=== PATIENT | male | born 1980 | race Caucasian/White ===

== ENCOUNTER 2018-11-05 06:47 | Inpatient (IN) | payer OTHER ==
[~2018-11-05] VITALS: Ht 185.4 cm; Wt 106.6 kg
--- NOTE | 2018-11-05 07:51 | NUR ---
Pt.in the room,was seen by .
[2018-11-05] MEDS ORDERED: KETOROLAC TROMETHAMINE 15 MG INJ IV ONE (08:15)
[2018-11-05] MEDS ORDERED: ONDANSETRON IV *ER 4 MG/2 ML VIAL IV ONE (08:15)
[2018-11-05] MEDS ORDERED: IV NORMAL SALINE 1000 ML BAG IV ONE ×2 (08:15→15:04)
[2018-11-05 08:19] LABS: *BILIRUBIN,URIN NEGATIVE (NEGATIVE); *BLOOD, URINE Trace-intact (NEGATIVE); *CLARITY,URINE CLEAR (CLEAR); *COLOR,URINE YELLOW (YELLOW); *KETONES,URINE 2+ (NEGATIVE); *UROBILINOGEN,URINE 0.2 E.U./dl (NORMAL); LEUKOCYTE ESTERASE ,URINE NEGATIVE (NEGATIVE); NITRITE, URINE NEGATIVE (NEGATIVE); PH,URINE 6.5 (5.0-8.0); UGLUCOSE NEGATIVE (NEGATIVE)
[2018-11-05] MEDS ORDERED: IOHEXOL 300MG/ML 100 ML INFUS..BTL ONE (08:21)
[2018-11-05] MEDS ORDERED: SWABABLE VALVE TRANSFER SET EA MC ONE (08:21)
[2018-11-05] MEDS ORDERED: IV NORMAL SALINE 250 ML IV ONE (08:21)
[2018-11-05 08:28] LABS: BACTERIA,URINE NONE SEEN /HPF (NONE SEEN); RBC,URINE 0-3 /HPF (0-3); SQUAMOUS EPITHELIAL CELL,UR FEW /HPF (NONE SEEN); WBC,URINE 0-3 /HPF (0-3)
[2018-11-05] MEDS ORDERED: DIATR MEGLU/DIATRIZOATE SODIUM 30 ML SOLUTION PO ONE (08:30)
[2018-11-05] MEDS ORDERED: KETOROLAC TROMETHAMINE 15 MG INJ ONE (08:33)
[2018-11-05] MEDS ORDERED: ONDANSETRON 4 MG/2 ML VIAL ONE (08:33)
[2018-11-05 08:40] LABS: BASOPHILS % (AUTO) 0.6 % (0.0-2.0); EOSINOPHILS # (AUTO) 0.1 K/uL (0.0-0.7); EOSINOPHILS % (AUTO) 1.4 % (0.0-7.0); HEMATOCRIT 44.6 % (36.7-47.1); HEMOGLOBIN 15.8 g/dL (12.5-16.3); LYMPHOCYTES # (AUTO) 1.9 K/uL (20.0-40.0); MEAN CORPUSCULAR HEMOGLOBIN 29.8 uug (23.8-33.4); MEAN CORPUSCULAR HGB CONC 36 g/dL (32.5-36.3); MEAN CORPUSCULAR VOLUME 83.8 fL (73.0-96.2); MONOCYTES # (AUTO) 0.6 K/uL (2.0-10.0); MONOCYTES % (AUTO) 7.6 % (0.0-11.0); NEUTROPHILS # (AUTO) 4.8 K/uL (1.8-8.9); NEUTROPHILS % (AUTO) 64.4 % (38.5-71.5); PLATELET COUNT (AUTO) 275 K/uL (152-348); RED BLOOD CELL COUNT(AUTO) 5.32 MIL/uL (4.06-5.63); WHITE BLOOD COUNT (AUTO) 7.4 K/uL (3.6-10.2)
[2018-11-05] MEDS ORDERED: DIATR MEGLU/DIATRIZOATE SODIUM 30 ML SOLUTION ONE (08:42)
[2018-11-05 08:53] LABS: CREATININE 1.1 mg/dL (0.6-1.3); POTASSIUM 4.2 mmol/L (3.5-5.1)
[2018-11-05 08:59] LABS: BILIRUBIN,DIRECT 0.1 mg/dL (0.0-0.2); BILIRUBIN,TOTAL 0.6 mg/dL (0.2-1.0); TOTAL PROTEIN, SERUM 7.7 g/dL (6.4-8.2)
--- NOTE | 2018-11-05 10:39 | NUR ---
PT.IN ROOM , WALKS TO THE BATHROOM, STATED THAT PAIN SUBSIDE AFTER PAIN MEDICATION. NO S/S OF ACUTE DISTRESS.
--- NOTE | 2018-11-05 10:43 | NUR ---
Pt. was seen by updated with CT scan resolt.
[2018-11-05] MEDS ORDERED: PIPERACILLIN SODIUM/TAZOBACTAM 3.375 G in IV DEXTROSE 5% 50 ML IV ONE (10:45)
--- NOTE | 2018-11-05 10:45 | NUR ---
AT BEDSIDE,ASK IF NEED BC PRIOR ZOSYN TO BE GIVEN,PER DR IGNACIO NO NEED FOR BC,ZOSYN STARTED.
[2018-11-05] MEDS ORDERED: PIPERACILLIN/TAZOBACTAM/D5W 50 ML IV ONE (10:47)
--- NOTE | 2018-11-05 11:03 | NUR ---
spoke with by the phone.
--- NOTE | 2018-11-05 11:55 | NUR ---
PT.OK TO BE ADMITED.SBAR REPORT GIVEN TO BOONE/KATHARINA.PT.WILL BE ADMITED TO #[id number] M/S
--- NOTE | 2018-11-05 12:50 | NUR ---
PT BROUGHT TO FLOOR VIA GURNEY. PT IS CALM, COOPERATIVE, NO SIGNS OF RESPIRATORY DISTRESS, PT C/O 12/23 PAIN WAS GIVEN TORADOL IN ER. LAST BM WAS YESTERDAY, NPO ALL DAY, 911 TELECOMMUNICATOR SPOKE TO PATIENT. 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 PT IS AOX4, LIVES WITH , VERBALIZES THAT HE IS NERVOUS AND ANXIOUS ABOUT POSSIBLE SURGERY. CONTINUE TO MONITOR PT.
[2018-11-05] MEDS ORDERED: PIPERACILLIN/TAZOBACTAM/D5W 50 ML IV SCH (14:00)
[2018-11-05] MEDS ORDERED: ACETAMINOPHEN 650 MG SUPP.RECT RC PRN (14:00)
[2018-11-05] MEDS ORDERED: ONDANSETRON 4 MG/2 ML VIAL IV PRN (14:00)
[2018-11-05] MEDS: KETOROLAC TROMETHAMINE 15 MG INJ IVP PRN ×2 (14:33→20:51)
[2018-11-05] MEDS: IV D5 1/2 NS 1000 ML 1,000 ML IV PRN (14:46)
[2018-11-05] MEDS ORDERED: NEOSTIGMINE METHYLSULFATE 10 MG/10 ML VIAL IV ONE (15:04)
[2018-11-05] MEDS ORDERED: IV LACTATED RINGERS SOLUTION 1,000 ML BAG IV ONE (15:04)
[2018-11-05] MEDS ORDERED: SEVOFLURANE 250 ML BOTTLE IH ONE (15:04)
[2018-11-05] MEDS ORDERED: IRR NORMAL SALINE IRRIGATION 1,000 ML BOTTLE IR ONE (15:04)
[2018-11-05] MEDS ORDERED: METOCLOPRAMIDE HCL 10 MG/2 ML VIAL IV ONE (15:04)
[2018-11-05] MEDS ORDERED: PROPOFOL 200 MG/20 ML BOTTLE IV ONE (15:04)
[2018-11-05] MEDS ORDERED: GLYCOPYRROLATE 0.2 MG/ML VIAL MC ONE (15:04)
[2018-11-05] MEDS ORDERED: CEFAZOLIN 1 G VIAL MC ONE (15:04)
[2018-11-05] MEDS ORDERED: ONDANSETRON 4 MG/2 ML VIAL IV ONE (15:04)
[2018-11-05 15:50] VITALS: BP 121/73
[2018-11-05] MEDS ORDERED: LIDOCAINE 0.5% MPF 50 ML VIAL ONE (15:53)
[2018-11-05] MEDS ORDERED: BUPIVACAINE/EPI PF 0.25% 30 ML VIAL ONE (15:53)
--- NOTE | 2018-11-05 16:10 | NUR ---
CONSENT SIGNED BY PATIENT AND WAS BROUGHT DOWN TO OR. PT WEDDING RING AND GLASSES WERE GIVEN TO .
[2018-11-05] MEDS ORDERED: FENTANYL CITRATE 250 MCG/5 ML AMPUL ONE (16:28)
[2018-11-05] MEDS ORDERED: METOCLOPRAMIDE HCL 10 MG/2 ML VIAL ONE (16:28)
[2018-11-05] MEDS ORDERED: MIDAZOLAM HCL 2 MG/2 ML VIAL ONE (16:28)
[2018-11-05] MEDS ORDERED: ROCURONIUM BROMIDE 50 MG/5 ML VIAL ONE (16:29)
[2018-11-05] MEDS ORDERED: MEPERIDINE 50 MG/1 ML DISP.SYRIN ONE (18:07)
--- NOTE | 2018-11-05 19:30 | NUR ---
PATIENT BACK FROM LAPAROSCOPIC APPENDECTOMY IN FAIR CONDITION, WITH DERMA BAND ON CLOSE TO UMBILICUS, LEFT ABDOMEN, R MID LINE ABDOMEN, PROVIDED INCENTIVE SPIROMETER, AND TAUGHT PATIENT TO USE IT, NO COMPLAIN OF PAIN AT THIS TIME. PATIENT ALERT ORIENTED, CONT TO MONITOR. FAMILY AT BEDSIDE.
[2018-11-05 20:00] VITALS: BP 126/65
[2018-11-05] MEDS: PIPERACILLIN/TAZOBACTAM/D5W 3.375 G in PREMIXED 1 EACH IV SCH (20:23)
[2018-11-05 21:30] VITALS: BP 117/67
--- NOTE | 2018-11-05 23:53 | NUR ---
PATIENT STILL COMPLAIN OF ABDOMINAL PAIN AFTER TWO HOURS OF TORADOL 15MG IV, NOTIFY DR. HARP, WITH ORDER OF MORPHINE 2MG IV EVERY 3 HOURS NEEDED, AND ATIVAN 1MG IV ONE TIME ORDER.
[2018-11-06] MEDS ORDERED: MORPHINE SULFATE 2 MG/1 ML DISP.SYRIN IV PRN
[2018-11-06] MEDS ORDERED: LORAZEPAM 2 MG/1 ML VIAL IV ONE
[2018-11-06] MEDS ORDERED: MORPHINE SULFATE 4 MG/1 ML DISP.SYRIN ONE (00:16)
--- NOTE | 2018-11-06 01:23 | NUR ---
SUSAN DENNISON, WITNESS BY SUPERVISOR COMPONENT ASSEMBLER NURSE.
--- NOTE | 2018-11-06 01:23 | NUR ---
PATIENT PAIN MEDICATION MORPHINE WAS EFFECTIVE, AND PATIENT REFUSED ATIVAN 1MG IV FOR ANXIETY AND SLEEP, STATED" HE'S ASLEEP" DON'T WANT ATIVAN AT THIS TIME. MEDICATION WAISTED.
--- NOTE | 2018-11-06 01:49 | NUR ---
ZOSYNS AT 0200 NOT GIVEN AT THIS TIME, TOO CLOSE FROM PREVIOUS ADMINISTRATION, NEXT DOSE AT 0400.
[2018-11-06 04:23] VITALS: BP 115/67
[2018-11-06] MEDS: KETOROLAC TROMETHAMINE 15 MG INJ IVP PRN ×2 (04:44→15:10)
[2018-11-06] MEDS: PIPERACILLIN/TAZOBACTAM/D5W 3.375 G in PREMIXED 1 EACH IV SCH ×3 (04:46→20:07)
--- NOTE | 2018-11-06 04:47 | NUR ---
PATIENT COMPLAINING UNABLE TO URINATE ADEQUATELY, PATIENT ASSISTED TO TOILET BUT DRIBBLE ONLY, ASSISTED BACK TO BED, AND BLADDER SCAN DONE WITH 500CC URINE RETENTION, ESCOBAR ELECTRONIC IMAGING SYSTEM OPERATOR NOTIFIED WITH ORDER TO DO STRAIGHT CATH, AND CONT TO MONITOR.
[2018-11-06 06:48] LABS: MONOCYTES # (AUTO) 0.7 K/uL (2.0-10.0); NEUTROPHILS # (AUTO) 6.1 K/uL (1.8-8.9); WHITE BLOOD COUNT (AUTO) 7.8 K/uL (3.6-10.2)
[2018-11-06 06:52] LABS: BILIRUBIN,TOTAL 0.9 mg/dL (0.2-1.0); CREATININE 1.2 mg/dL (0.6-1.3); POTASSIUM 3.6 mmol/L (3.5-5.1); TOTAL PROTEIN, SERUM 7.1 g/dL (6.4-8.2)
[2018-11-06 06:59] LABS: BASOPHILS % (AUTO) 0.3 % (0.0-2.0); EOSINOPHILS % (AUTO) 0.2 % (0.0-7.0); LYMPHOCYTES % (AUTO) 12.4 % (20.5-51.5); MEAN CORPUSCULAR HEMOGLOBIN 30.2 uug (23.8-33.4); MEAN CORPUSCULAR HGB CONC 35 g/dL (32.5-36.3); MEAN CORPUSCULAR VOLUME 85.4 fL (73.0-96.2); MONOCYTES % (AUTO) 8.7 % (0.0-11.0); NEUTROPHILS % (AUTO) 78.4 % (38.5-71.5); PLATELET COUNT (AUTO) 226 K/uL (152-348); RED BLOOD CELL COUNT(AUTO) 4.53 MIL/uL (4.06-5.63)
[2018-11-06 07:01] LABS: HEMATOCRIT 38.7 % (36.7-47.1); HEMOGLOBIN 13.7 g/dL (12.5-16.3)
[2018-11-06] MEDS ORDERED: MORPHINE SULFATE 4 MG/1 ML DISP.SYRIN IV PRN (07:15)
--- NOTE | 2018-11-06 07:30 | NUR ---
REPORT RECVD THIS AM, PATIENT AWAKE AND ALERT , DENIES ANY DISTRESS AT THIS TIME . NO SOB OR PAIN REPORTED. PATIENT ASSISTED TO BATHROOM, VOIDING, CONTINUE TO MONITOR. REFUSED ICD PUMPS
[2018-11-06] MEDS: PANTOPRAZOLE SODIUM 40 MG VIAL IV SCH (08:36)
[2018-11-06] MEDS: IV D5 1/2 NS 1000 ML 1,000 ML IV PRN (08:37)
--- NOTE | 2018-11-06 11:13 | NUR ---
PATIENT CONTINUES TO VOID FREQUENTLY THIS AM, BLADDER SCAN DONE POST VOID, 676ML . NOTIFIED Blaire WANG.Jacob., STRAIGHT CATH DONE PER ORDERS, 750ML.
[2018-11-06 11:50] VITALS: BP 132/79
--- NOTE | 2018-11-06 12:10 | NUR ---
PATIENT NOTED TO HAVE SOME BLOTCHINESS THROUGHOUT CHEST AND ABDOMEN, NOT NOTED EARLIER THIS AM DURING BLADDER SCAN, PATIENT RECENTLY HAD MORPHINE SULFATE. PATIENT DENIES ANY DISTRESS OR SOB. PATIENT ALSO HAVING SOME LOCALIZED REDNESS AROUND UMBILICAL AREA, ONE OF THE SURGERY SITES. OUTLINED WITH MARKER FOR OBSERVATION, Blaire WANG.P. AWARE. AFEBRILE VITALS STABLE.
[2018-11-06] MEDS ORDERED: LIDOCAINE 2% (UROJET) 10 ML JELLY MM PRN (13:30)
--- NOTE | 2018-11-06 14:25 | NUR ---
PATIENT UP AMBULATING IN HALLWAY WITH STAFF AND GIRLFRIEND AT SIDE. PATIENT TOLERATING WELL, NO DISTRESS REPORTED, REPORTS BURPING AT THIS TIME NO NAUSEA NO VOMITING. CONTINUE TO ENCOURAGE AMBULATION. NO SOB. PATIENT ATTEMPTED TO VOID, REPORTED SOME DISTENTION, BLADDER SCAN 157ML/HR AT THIS TIME CONTINUE TO MONITOR. EDUCATED ON ANESTHESIA AND POST SURGERY ABDOMINAL DISTENTION AND URINARY RETENTION, CONTINUE TO MONITOR BLADDER SCAN ORDERS AND STRAIGHT CATH NEEDED FOR URINE OF 400ML OR GREATER. PATIENT EDUCATED.
--- NOTE | 2018-11-06 15:45 | NUR ---
PATIENT BLOTCHINESS SUBSIDED, IMPROVED CONTINUE TO MONITOR
[2018-11-06 16:00] VITALS: BP 131/80
--- NOTE | 2018-11-06 17:37 | NUR ---
bladder scan at this time 87ml. Patient continues to void, no straight cath needed at this time. Addendum: 11/06/18 at 1738 by SANNA DOAN RN Amended: Links added.
[2018-11-06 19:00] VITALS: BP 120/67
--- NOTE | 2018-11-06 19:20 | NUR ---
RECEIVED PT AWAKE, ALERT AND ORIENTEDX4. PT SHOWS NO SIGNS OF ACUTE DISTRESS. PT IV INTACT. SAFETY AND COMFORT PROVIDED. CALL LIGHT WITHIN REACH. WILL CONTINUE TO MONITOR.
[2018-11-06] MEDS: TAMSULOSIN HCL 0.4 MG CAP.SR.24H PO SCH (20:07)
[2018-11-07] MEDS: KETOROLAC TROMETHAMINE 15 MG INJ IVP PRN (00:22)
--- NOTE | 2018-11-07 00:50 | NUR ---
PT GOT TORADOL 0022H FOR PAIN SCALE OF 7/10 ON HIS ABDOMEN. PT TOLERATED IT WELL. PT REQUEST FOR SLEEPING MEDICATION. CALLED DR HOME S[employer] LIAISON OFFICER. DR SONY MARIA N.P. ORDERED AMBIEN 5MG PRN HS. BLADDER SCAN THE PT AND ITS 0ML. PT URINATING WELL.PT HAD I BOWEL MOVEMENT. SAFETY AND COMFORT PROVIDED. PT STABLE. WILL CONTINUE TO MONITOR.
[2018-11-07] MEDS ORDERED: ZOLPIDEM 5 MG TABLET PO PRN ×2 (01:00)
[2018-11-07] MEDS: PIPERACILLIN/TAZOBACTAM/D5W 3.375 G in PREMIXED 1 EACH IV SCH ×2 (03:59→11:08)
[2018-11-07 04:00] VITALS: BP 120/81
[2018-11-07 06:32] LABS: BASOPHILS % (AUTO) 0.4 % (0.0-2.0); EOSINOPHILS % (AUTO) 0.7 % (0.0-7.0); HEMATOCRIT 36.6 % (36.7-47.1); HEMOGLOBIN 12.9 g/dL (12.5-16.3); LYMPHOCYTES # (AUTO) 1.7 K/uL (20.0-40.0); LYMPHOCYTES % (AUTO) 29.9 % (20.5-51.5); MEAN CORPUSCULAR HEMOGLOBIN 29.9 uug (23.8-33.4); MEAN CORPUSCULAR HGB CONC 35 g/dL (32.5-36.3); MEAN CORPUSCULAR VOLUME 84.8 fL (73.0-96.2); MONOCYTES # (AUTO) 0.6 K/uL (2.0-10.0); MONOCYTES % (AUTO) 10.7 % (0.0-11.0); NEUTROPHILS # (AUTO) 3.4 K/uL (1.8-8.9); NEUTROPHILS % (AUTO) 58.3 % (38.5-71.5); PLATELET COUNT (AUTO) 224 K/uL (152-348); RED BLOOD CELL COUNT(AUTO) 4.32 MIL/uL (4.06-5.63); WHITE BLOOD COUNT (AUTO) 5.8 K/uL (3.6-10.2)
--- NOTE | 2018-11-07 06:32 | NUR ---
PT SHOWS NO SIGNS OF ACUTE DISTRESS. PT IV INTACT. PRESCRIBED MEDICATION GIVEN AND PT TOLERATED IT WELL.CALL LIGHT WITHIN REACH. BED ALARM ON . PT VOIDING WELL. PT HAD ONE BOWEL MOVEMENT DURING THE SHIFT. SAFETY AND COMFORT PROVIDED. ALL NEEDS ARE MET.WILL ENDORSE ACCORDINGLY TO INCOMING NURSE FOR CONTINUITY OF CARE.
--- NOTE | 2018-11-07 06:50 | NUR ---
GOT 91 ML FOR BLADDER SCAN. PT STABLE WITH NO ACUTE DISTRESS.SAFETY AND COMFORT PROVIDED.WILL ENDORSE TO INCOMING NURSE FOR CONTINUITY OF CARE.
[2018-11-07 06:59] LABS: CREATININE 1.1 mg/dL (0.6-1.3); POTASSIUM 3.6 mmol/L (3.5-5.1)
[2018-11-07] MEDS: TAMSULOSIN HCL 0.4 MG CAP.SR.24H PO SCH (08:21)
[2018-11-07] MEDS: PANTOPRAZOLE SODIUM 40 MG VIAL IV SCH (08:22)
--- NOTE | 2018-11-07 10:49 | NUR ---
PER MD ORDERS BLADDER SCANS DONE 24 ML URINE NOTED MD MADE AWARE.
[2018-11-07 11:40] VITALS: BP 131/87
[2018-11-07] MEDS: IV D5 1/2 NS 1000 ML 1,000 ML IV PRN (12:35)
[2018-11-07] MEDS ORDERED: TAMS-3 PO (14:58)
--- NOTE | 2018-11-07 16:55 | NUR ---
D/C ORDERS RECEIVED NOTED AND CARRIED OUT.D/C HEPLOCK PER MD ORDERS,D/C INSTRUCTION AND EDUCATION GIVEN TO THE PT .AND PT SAID HE WILL FOLLOW UP WITH SURGEON IN ONE WEEK PT LEFT THE FACILITY VIA PRIVATE CAR IN STABLE CONDITION
[2018-11-08] MEDS ORDERED: PANTOPRAZOLE SODIUM 40 MG TABLET.DR PO SCH (07:00)
== END 2018-11-07 16:50 | disposition home or self-care (01) | DRG 342 ==
LOC: ER 06:49 → MED 12:29
PROVIDERS: ADMIT Internal Medicine; ATTEND Internal Medicine
PROC: 0WQF4ZZ Repair Abdominal Wall, Percutaneous Endoscopic Approach (ICD-10-PCS; principal; 2018-11-05)
PROC: 0DTJ4ZZ Resection of Appendix, Percutaneous Endoscopic Approach (ICD-10-PCS; 2018-11-05)
DX: K35.80 Unspecified acute appendicitis (principal); E87.1 Hypo-osmolality and hyponatremia; K38.1 Appendicular concretions; K43.9 Ventral hernia without obstruction or gangrene; K58.1 Irritable bowel syndrome with constipation; Z91.89 Other specified personal risk factors, not elsewhere classified; E66.9 Obesity, unspecified; Z68.31 Body mass index [BMI] 31.0-31.9, adult; Z87.448 Personal history of other diseases of urinary system; K76.89 Other specified diseases of liver; Z83.3 Family history of diabetes mellitus; Z80.0 Family history of malignant neoplasm of digestive organs; N40.1 Benign prostatic hyperplasia with lower urinary tract symptoms; R33.8 Other retention of urine
CPT/HCPCS: 36415; 70030-TC; 71045; 83690; 85025; 85730; A4217; A4663; C1758; C9113; G0378; J0690; J1885; J2060; J2175; J2250; J2270; J2405; J2543; J2710; J2765; J3010; J3490; J7030; J7050; J7120; Q9963; Q9967